=== PATIENT | female | born 1985 | race Caucasian/White ===

== ENCOUNTER 2017-01-01 12:07 | Emergency (ER) | payer SELFPAY ==
[~2017-01-01] VITALS: Ht 157.5 cm; Wt 86.2 kg
[~2017-01-01 12:07] MED LIST: DOXYCYCLINE100 M3 PO; MOTRIN800 MG PO; PRENATAL VITAMI1 T10 PO; TYLENOL ES500 MG PO; VENTOLIN H0.09 MG/Ac IH
[2017-01-01 12:12] VITALS: BP 112/63
--- NOTE | 2017-01-01 12:22 | NUR ---
Patient ambulated to bed 1. RN evaluating patient at bedside.
--- NOTE | 2017-01-01 12:30 | NUR ---
31F BIB SELF C/O ECTOPIC ; PT WAS SCHEDULED FOR ECTOPIC 2 DAYS AGO. HX: HYPOTHYROIDISM/ASTHMA. PT DENIES N/V/D; SKIN IS PINK/WARM/DRY; AAOX4 WITH EVEN AND STEADY GAIT; LUNGS CLEAR BL; HR EVEN AND REGULAR; PT DENIES ANY FEVER, CP, SOB, OR COUGH AT THIS TIME; PATIENT STATES PAIN OF 8/10 AT THIS TIME; VSS; PATIENT POSITIONED FOR COMFORT; HOB ELEVATED; BEDRAILS UP X2; BED DOWN. ER MD MADE AWARE OF PT STATUS.
[2017-01-01] MEDS ORDERED: NACL 0.9% 1,000 ML IV SCH (12:31)
[2017-01-01] MEDS ORDERED: ONDANSETRON 4 MG/2 ML VIAL IVP ONE (12:35)
--- NOTE | 2017-01-01 13:00 | NUR ---
pt taken to us via w/c accompanied by sales agent trading stamps
[2017-01-01 16:19] VITALS: BP 126/72
[2017-01-19] MEDS ORDERED: VIBRAMYCIN100 MG PO (10:12)
[2017-01-19] MEDS ORDERED: KETOROLAC PO (10:14)
[2017-01-19] MEDS ORDERED: norco (10:28)
[2017-01-19] MEDS ORDERED: ACETAMINOPHEN-H1 TA3 PO (10:28)
[2017-01-19] MEDS ORDERED: COLACE100 M1 PO (10:29)
== END 2017-01-01 16:18 | disposition home or self-care (01) ==
LOC: MED 12:07
DX: O26.891 Other specified pregnancy related conditions, first trimester (principal); R10.2 Pelvic and perineal pain; R10.30 Lower abdominal pain, unspecified; J45.909 Unspecified asthma, uncomplicated; I10 Essential (primary) hypertension; Z88.0 Allergy status to penicillin; Z88.6 Allergy status to analgesic agent; Z3A.01 Less than 8 weeks gestation of pregnancy
CPT/HCPCS: 36415; 76801; 80053; 81001; 81025; 84702; 85025; 96361; 96374; 99285; J2405; Q0092

== ENCOUNTER 2019-04-18 00:10 | Observation (INO) | payer MEDICARE, OTHER ==
[~2019-04-18] VITALS: Ht 157.5 cm; Wt 90.7 kg
[2019-04-18 00:10] VITALS: BP 124/60
[~2019-04-18 00:10] MED LIST changes: +ACET-9525 PO; +ALBU0.0912 IH; +DOCU-299 PO; +DOXY100C9 PO; -DOXYCYCLINE100 M3 PO; +KETO10TA2 PO; -MOTRIN800 MG PO; -PRENATAL VITAMI1 T10 PO; -TYLENOL ES500 MG PO; -VENTOLIN H0.09 MG/Ac IH
--- NOTE | 2019-04-18 00:15 | NUR ---
TO LABOR AND DELIVEY VIA W/C
[2019-04-18] MEDS ORDERED: BETAMETH ACET/BETAMETH NA PH 30 MG/5 ML VIAL IM ONE ×3 (01:05→13:30)
[2019-04-18] MEDS ORDERED: NALBUPHINE 10 MG/ML AMP IVP ONE (01:05)
[2019-04-18 01:09] LABS: APPEARANCE,URINE CLEAR (CLEAR); BILIRUBIN,URINE NEGATIVE (NEGATIVE); BLOOD, URINE NEGATIVE (NEGATIVE); COLOR,URINE YELLOW (YELLOW); LEUKOCYTE ESTERASE ,URINE NEGATIVE (NEGATIVE); NITRITE, URINE NEGATIVE (NEGATIVE); PH,URINE 6.5 (5.0-9.0); UGLUCOSE NEGATIVE (NEGATIVE)
[2019-04-18] MEDS: LACTATED RINGERS 1,000 ML IV SCH ×3 (01:37→16:32)
[2019-04-18] MEDS ORDERED: NALBUPHINE 10 MG/ML AMP ONE ×2 (01:39→12:01)
[2019-04-18 02:44] VITALS: BP 124/62
--- NOTE | 2019-04-18 08:07 | NUR ---
PATIENT HAS BEEN SCREENED AND CATEGORIZED LOW NUTRITION RISK. PATIENT WILL BE SEEN WITHIN 7 DAYS OF ADMISSION. 04/24/[address]
[2019-04-18] MEDS ORDERED: TERBUTALINE 1 MG/ML VIAL SUBQ ONE (09:11)
[2019-04-18] MEDS: TERBUTALINE 1 MG/ML VIAL SUBQ SCH ×2 (09:27→10:32)
[2019-04-18] MEDS ORDERED: CLINDAMYCIN 900 MG in DEXTROSE 5% 100 ML IV SCH (11:00)
[2019-04-18] MEDS ORDERED: CITRIC ACID/SODIUM CITRATE 30 ML UDC PO SCH (11:00)
[2019-04-18 11:01] LABS: HEMATOCRIT 32.8 % (36-48); HEMOGLOBIN 11.1 g/dL (12.0-16.0); MEAN CORPUSCULAR HEMOGLOBIN 29 pg (27-31); MEAN CORPUSCULAR HGB CONC 34 g/dL (33-37); MEAN CORPUSCULAR VOLUME 86.1 fL (80-94); PLATELET COUNT (AUTO) 187 K/uL (140-450); RED BLOOD CELL COUNT(AUTO) 3.81 MIL/uL (4.20-5.40); RED CELL DISTRIBUTION WIDTH 14.2 % (11.6-13.7); WHITE BLOOD COUNT (AUTO) 9.2 K/uL (4.8-10.8)
[2019-04-18 11:14] LABS: ALBUMIN 2.5 g/dL (3.4-5.0); ANION GAP 16.1 (8-16); CARBON DIOXIDE 19.3 mmol/L (21-32); CREATININE 0.7 mg/dL (0.6-1.3); MAGNESIUM 1.5 mg/dL (1.8-2.4); POTASSIUM 3.4 mmol/L (3.5-5.1); TOTAL BILIRUBIN 0.5 mg/dL (0.0-1.0)
[2019-04-18 11:44] LABS: MONOCYTES % (MANUAL) 2 % (5-12)
[2019-04-18 11:45] LABS: LYMPHOCYTES % (MANUAL) 10 % (20-46)
[2019-04-18] MEDS ORDERED: NALBUPHINE 10 MG/ML AMP IVP SCH (12:00)
[2019-04-18 12:12] LABS: PROTHROMBIN TIME 9.4 secs (10.8-13.4)
[2019-04-18 13:09] LABS: RAPID PLASMA REAGIN NON-REACTIVE (Non Reactiv)
[2019-04-18] MEDS ORDERED: BETAMETH ACET/BETAMETH NA PH 30 MG/5 ML VIAL IM SCH (13:45)
--- NOTE | 2019-04-18 15:00 | NUR ---
ALL CLINICALS FAXED TO [facility] AT [phone]
--- NOTE | 2019-04-19 10:08 | NUR ---
PER IVANNA OF [facility] [phone] THEY RECEIVED THE FAXED CLINICALS YESTERDAY 04/18/19 AT [phone].
== END 2019-04-18 19:40 | disposition short-term general hospital (02) ==
LOC: MED 00:10 → MLD 00:15 → MED 00:15 → MLD 00:20
PROVIDERS: ADMIT Obstetrics & Gynecology; ATTEND Obstetrics & Gynecology
DX: O26.892 Other specified pregnancy related conditions, second trimester (principal); R10.9 Unspecified abdominal pain; Z3A.24 24 weeks gestation of pregnancy
CPT/HCPCS: 36415; 51702; 80053; 81003; 83735; 85025; 85379; 85610; 85730; 86592; 86703; 86762; 86886; 86900; 86901; 87340; 96372; 96374; 96376; G0378; J0702; J2300; J3105; J7120; J3490; J7060

== ENCOUNTER 2023-08-11 21:37 | Emergency (ER) | payer MEDICARE, MEDICAID ==
[~2023-08-11] VITALS: Ht 157.5 cm; Wt 81.6 kg
[~2023-08-11 21:37] MED LIST changes: +DOXY-690 PO; -DOXY100C9 PO
[2023-08-11 21:49] VITALS: BP 136/93; PULSE 74; RESP 14; TEMP 98.2; O2SAT 99
[2023-08-11 22:36] LABS: BASOPHILS % (AUTO) 0.6 % (0.0-2.0); EOSINOPHILS # (AUTO) 0.1 K/uL (0-0.4); EOSINOPHILS % (AUTO) 1.5 % (0.0-4.0); HEMATOCRIT 40.9 % (36-48); HEMOGLOBIN 14.2 g/dL (12.0-16.0); LYMPHOCYTES # (AUTO) 1.8 K/uL (2.5-16.5); LYMPHOCYTES % (AUTO) 22.6 % (20.5-51.1); MEAN CORPUSCULAR HEMOGLOBIN 30 pg (27-31); MEAN CORPUSCULAR HGB CONC 35 g/dL (33-37); MEAN CORPUSCULAR VOLUME 86.7 fL (80-94); MONOCYTES # (AUTO) 0.6 K/uL (0.8-1.0); NEUTROPHILS # (AUTO) 5.6 K/uL (1.8-7.7); NEUTROPHILS % (AUTO) 68.3 % (42.2-75.2); PLATELET COUNT (AUTO) 305 K/uL (140-450); RED BLOOD CELL COUNT(AUTO) 4.71 MIL/uL (4.20-5.40); RED CELL DISTRIBUTION WIDTH 14.5 % (11.6-13.7); WHITE BLOOD COUNT (AUTO) 8.1 K/uL (4.8-10.8)
[2023-08-11 22:42] LABS: APPEARANCE,URINE CLEAR (CLEAR); BILIRUBIN,URINE NEGATIVE (NEGATIVE); BLOOD, URINE 1+ (NEGATIVE); COLOR,URINE YELLOW (YELLOW); LEUKOCYTE ESTERASE ,URINE NEGATIVE (NEGATIVE); NITRITE, URINE NEGATIVE (NEGATIVE); PROTEIN,URINE NEGATIVE (NEGATIVE); UGLUCOSE NEGATIVE (NEGATIVE)
[2023-08-11 22:57] LABS: ALBUMIN 4.2 g/dL (3.4-5.0); ANION GAP 11.3 (8-16); CALCIUM 9.6 mg/dL (8.5-10.1); CARBON DIOXIDE 27.3 mmol/L (21-32); CREATININE 0.7 mg/dL (0.6-1.3); POTASSIUM 3.6 mmol/L (3.5-5.1); TOTAL PROTEIN, SERUM 8.2 g/dL (6.4-8.2)
[2023-08-11 23:00] LABS: BACTERIA,URINE FEW /HPF (None Seen); SQUAMOUS EPITHELIAL CELL,UR 0-3 (FEW) /LPF (0-3 (FEW)); WBC,URINE 0-5 /HPF (0-5)
[2023-08-11 23:01] LABS: MUCUS,URINE 1+ /LPF (None Seen)
[2023-08-11] MEDS ORDERED: ACETAMINOPHEN EXTRA STRENGTH 500 MG TAB PO ONE (23:25)
[2023-08-12 00:05] LABS: AMPHETAMINE, URINE POSITIVE ng/ml (NEG <=1000); BARBITURATE, URINE NEGATIVE ng/ml (NEG <=200); BENZODIAZEPINE, URINE NEGATIVE ng/mL (NEG <=200); CANNABINOID, URINE NEGATIVE ng/mL (NEG <=50); COCAINE, URINE NEGATIVE ng/mL (NEG <=300); OPIATE, URINE NEGATIVE ng/mL (NEG <=2000); PHENCYCLIDINE SCREEN,URINE NEGATIVE ng/mL (NEG <=25)
== END 2023-08-12 03:00 | disposition left against medical advice (07) ==
LOC: MED 21:37
DX: S01.85XA Open bite of other part of head, initial encounter (principal); F15.129 Other stimulant abuse with intoxication, unspecified; R42 Dizziness and giddiness; J45.909 Unspecified asthma, uncomplicated; E07.9 Disorder of thyroid, unspecified; F17.210 Nicotine dependence, cigarettes, uncomplicated; Z88.0 Allergy status to penicillin; Z88.6 Allergy status to analgesic agent; Z98.890 Other specified postprocedural states; Z79.899 Other long term (current) drug therapy; Z20.822 Contact with and (suspected) exposure to COVID-19; W50.3XXA Accidental bite by another person, initial encounter; Y93.89 Activity, other specified; Y92.89 Other specified places as the place of occurrence of the external cause; Y99.8 Other external cause status
CPT/HCPCS: 36415; 70450; 80053; 80305; 81001; 84484; 84702; 85025; 87426; 93005; 99285; G0482